=== PATIENT | male | born 1930 | race Caucasian/White ===

== ENCOUNTER 2016-11-23 12:50 | Inpatient (IN) | payer MEDICARE ==
[~2016-11-23] VITALS: Ht 177.8 cm; Wt 68.8 kg
[~2016-11-23 12:50] MED LIST: ACETAMINOPHEN325 MG PO; AMOXICILLIN500 M1 PO; AUGMENTIN 875-11 TAB PO; BACTRIM DS TABL1 TAB PO; BETAPACE 80 MG80 MG PO; BIAXIN 500 MG500 MG PO; CARAFATE1 G/10 ML PO; CARDIZEM120 MG PO; FERROUS SULFAT325 MG PO; FLOMAX0.4 MG PO; HYDROCODONE-APA1 TAB PO; NAPROSYN500 MG PO; PROCTOCORT RC; PROTONIX40 MG PO; ULTRAM50 MG PO; VITAMIN B-121000 MCG PO; VITAMIN B-1250 MCG PO
[2016-11-23 13:45] LABS: BASOPHILS 0 % (0-2); EOSINOPHILS 0 % (0-7); HEMATOCRIT 33.1 % (42.0-54.0); HEMOGLOBIN 10.8 g/dL (13.5-17.5); IMMATURE GRANULOCYTES 0.4 % (0-5); LYMPHOCYTES 6.8 % (15-50); MCH 29.7 pg (26.0-34.0); MCHC 32.6 g/dL (31.0-37.0); MCV 90.9 fL (80.0-100.0); MEAN PLATELET VOLUME 8.2 fL (7.4-10.4); MONOCYTES 7.3 % (2-11); NEUTROPHILS 85.5 % (40-80); RBC 3.64 10x6/uL (4.20-6.10); RDW 15.7 % (11.5-14.5); WBC 7.8 10x3/uL (4.8-10.8)
[2016-11-23 13:46] LABS: PLATELET COUNT 192 10x3/uL (130-400)
[2016-11-23 14:00] LABS: ALBUMIN 3.4 g/dL (3.4-5.0); ANION GAP 9.9 mmol/L (8-16); BILIRUBIN - TOTAL 0.46 mg/dL (0.2-1.3); CALCIUM 8.4 mg/dL (8.5-10.1); CARBON DIOXIDE 32.8 mmol/L (21.0-32.0); CREATININE - SERUM 1.2 mg/dL (0.6-1.3); POTASSIUM - SERUM 3.7 mmol/L (3.5-5.1); PROTEIN - SERUM 7.2 g/dL (6.4-8.2)
[2016-11-23 16:03] LABS: INR 1.38 (0.85-1.17); PROTIME 16.9 SECONDS (11.6-15.0)
[2016-11-23 16:04] LABS: APTT 39.4 SECONDS (22.8-39.4)
[2016-11-23 16:57] VITALS: BP 160/85; BMI 19.4
--- NOTE | 2016-11-23 17:00 | NUR ---
RECEIVED TO ROOM 2205 VIA STRETCHER FROM ER. A/O X3. NO C/O AT THIS TIME. NG TO RIGHT NARE PATENT WITH DARK BROWNISH DRAINAGE. IV TO LEFT FOREARM/AC AREA PATENT. SKIN IS INTACT WITHOUT REDNESS EXCEPT SOME REDNESS NOTED TO COCCYX AREA AND ALONG SPINE TO MID BACK. DENIES PAIN OR NEEDS AT TTHIS TIME.
--- NOTE | 2016-11-23 19:28 | NUR ---
REPORT CALLED TO DALILA. NO CHANGES NOTED. TRANSFERRED TO ROOM 2118 PER MD ORDERS.
--- NOTE | 2016-11-23 19:43 | NUR ---
PT ARRIVES FROM MED SURG, ROOM 2205, VIA WC ACCOMPANIED BY NURSE. TELEMETRY ON AND REVEALS PT IS IN A NSR WITH PAC'S AND PVC'S. HR 88. UPON ARRIVAL, TEMP IS 101.[address] LOPES. ROOM AIR, SATS 95%. NGT TO LEFT NARE, DRAINS MODERATE AMOUNT GREEN BILE LIKE DRAINAGE, CONNECTED TO LIWS. LEFT AC WITH D5 1/2NS C/ 10 KCL @ 125 CC/HR. PT IS ALERT AND ORIENTED. DAUGHTER INB LAW AT THE BEDSIDE. SCD'S ON AND CONNECTED. CALL LIGHT PLACED WITHIN REACH.
--- NOTE | 2016-11-23 19:51 | NUR ---
DR LOPES PAGED TO NOTIFY OF ELEVATED TEMP. AWAITING RETURN CALL.
[2016-11-23 19:53] VITALS: BP 153/88
--- NOTE | 2016-11-23 20:03 | NUR ---
RETURN CALL FROM DR LOPES, NEW ORDERS RECEIVED FOR CARDIO CONSULT, TYLENOL SUPP PRN FOR ELEVATED TEMP AND BLOOD AND URINE CULTURES. PT AND FAMILY UPDATED ON POC AND VERBALIZED UNDERSTANDING.
[2016-11-23 21:38] LABS: APPEARANCE CLEAR (CLEAR); BILIRUBIN NEGATIVE (NEGATIVE); COLOR YELLOW (YELLOW); GLUCOSE NEGATIVE (NEGATIVE); KETONE NEGATIVE (NEGATIVE); LEUKOCYTE ESTERASE NEGATIVE (NEGATIVE); NITRITE NEGATIVE (NEGATIVE); PROTEIN TRACE mg/dL (NEGATIVE); UROBILINOGEN NORMAL (NORMAL)
[2016-11-24] VITALS (7 sets, daily range): BP systolic 114–146; BP diastolic 54–84; Ht 177.8 cm; Wt 68.8 kg
--- NOTE | 2016-11-24 00:14 | NUR ---
REMAINS IN NSR ON MONITOR, HR 77. REMAINS WITH FREQ PAC'S/PVC'S. NO NEEDS VOICED. WILL CONT TO MONITOR.
--- NOTE | 2016-11-24 02:00 | NUR ---
PT RESTING WELL WITHOUT C/O OR DISTRESS NOTED.
--- NOTE | 2016-11-24 05:20 | NUR ---
PT C/O NGT IRRITATING HIS NOSE AND PLEADS TO HAVE NGT REMOVED. EXPLAINED TO PT THAT THE PHYSICIAN ORDERED IT AND IT CAN NOT BE REMOVED UNTIL HE ORDERS NGT TO BE REMOVED AND THE NEED FOR NGT TO DECOMPRESS HIS STOMACH. PT VERBALIZES UNDERSTANDING AND STATES WILL AWAIT DR LOPES OR DR MCKINNON TO COME AND SPEAK WITH HIM THIS MORNING.
[2016-11-24 05:51] LABS: BASOPHILS 0.1 % (0-2); EOSINOPHILS 0.2 % (0-7); HEMATOCRIT 31.1 % (42.0-54.0); IMMATURE GRANULOCYTES 0.3 % (0-5); LYMPHOCYTES 5.8 % (15-50); MCH 29.6 pg (26.0-34.0); MCHC 32.2 g/dL (31.0-37.0); MEAN PLATELET VOLUME 8.5 fL (7.4-10.4); MONOCYTES 9.1 % (2-11); NEUTROPHILS 84.5 % (40-80); PLATELET COUNT 193 10x3/uL (130-400); RBC 3.38 10x6/uL (4.20-6.10); RDW 15.7 % (11.5-14.5); WBC 9.5 10x3/uL (4.8-10.8)
[2016-11-24 06:09] LABS: ALBUMIN 2.9 g/dL (3.4-5.0); ANION GAP 8.9 mmol/L (8-16); BILIRUBIN - TOTAL 0.48 mg/dL (0.2-1.3); CALCIUM 7.4 mg/dL (8.5-10.1); CARBON DIOXIDE 30.8 mmol/L (21.0-32.0); CREATININE - SERUM 1.2 mg/dL (0.6-1.3); PROTEIN - SERUM 6.3 g/dL (6.4-8.2)
[2016-11-24 06:16] LABS: POTASSIUM - SERUM 2.7 mmol/L (3.5-5.1)
--- NOTE | 2016-11-24 07:07 | NUR ---
DR CASTILLO ON FLOOR, NOTIFIED OF CONSULT ORDER.
--- NOTE | 2016-11-24 07:30 | NUR ---
RECEIVED PT IN BED AAOX4 RESP UNLABORED NG TUBE PATENT TO RT NARE CONNECTED TO LOW INTERMITENT SUCTION PT DENIES ANY NEEDS AT THIS TIME
--- NOTE | 2016-11-24 16:00 | NUR ---
WENT IN PT ROOM PT ASLEEP FOUND NG TUBE LAYING IN BED BY PT INSERTED BUCK MONET NG TUBE THRU LT NARE SECURED AND VERIFIED BY ASCULATION RECONNECTED TO LOW INTERMITTENT SUCTION PT TOLERATED WELL
--- NOTE | 2016-11-24 23:15 | NUR ---
K+ RESULTS 3.6. NO FURTHER INTERVENTION REQUIRED PER ELECTROLYTE PROTOCOL.
[2016-11-25] VITALS: BP 117/62
[2016-11-25 04:00] VITALS: BP 125/75
[2016-11-25 05:41] LABS: BASOPHILS 0.1 % (0-2); EOSINOPHILS 0.5 % (0-7); HEMATOCRIT 30.1 % (42.0-54.0); HEMOGLOBIN 9.6 g/dL (13.5-17.5); IMMATURE GRANULOCYTES 0.5 % (0-5); LYMPHOCYTES 7.5 % (15-50); MCH 29.3 pg (26.0-34.0); MCHC 31.9 g/dL (31.0-37.0); MCV 91.8 fL (80.0-100.0); MEAN PLATELET VOLUME 9.1 fL (7.4-10.4); MONOCYTES 11.2 % (2-11); NEUTROPHILS 80.2 % (40-80); PLATELET COUNT 211 10x3/uL (130-400); RBC 3.28 10x6/uL (4.20-6.10); RDW 15.5 % (11.5-14.5); WBC 8.5 10x3/uL (4.8-10.8)
[2016-11-25 05:58] LABS: CALC OSMOLALITY 267 mosm/kg (275-300); CALCIUM 7.3 mg/dL (8.5-10.1); CARBON DIOXIDE 26.1 mmol/L (21.0-32.0); CHLORIDE - SERUM 100 mmol/L (98-107); GLUCOSE 109 mg/dL (74-106); POTASSIUM - SERUM 3.6 mmol/L (3.5-5.1); SODIUM 134 mmol/L (136-145); eGFR NON AFRICAN AMERICAN 75 mL/min (90-120)
[2016-11-25 06:01] LABS: UREA NITROGEN 11 mg/dL (7-18)
[2016-11-25 08:00] VITALS: BP 114/72
--- NOTE | 2016-11-25 08:35 | HP ---
PATIENT: JELLY KENDALL JR MEDICAL RECORD: [id number] ACCOUNT: [id number] LOCATION:[address] : [birth year] ADMISSION DATE: 11/23/16 HISTORY AND PHYSICAL EXAMINATION REASON FOR ADMISSION: Abdominal pain with fecal vomiting. 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 Of the last 2 days, he had increasing abdominal pain and today started vomiting brown fecal material. For that reason, he came to the Emergency Room. He denies fever. He has had no abdominal surgery in the past except for right fem-pop repair. He states that he lost about 50 pounds a year ago. Weight stabilized and has not dropped any further. He goes to [place] for his health care mainly and sees Dr. Barriga for history of PIF. He said he has not had a big workup for weight loss, but has been stable for the last year. He lives alone and fixes all meals. He states that he does have a son and daughter, all living in town. PAST MEDICAL HISTORY: A 4 cm aortic abdominal aneurysm, asymptomatic, peripheral vascular disease with previous fem-pop on the right, history of paroxysmal atrial fibrillation, history of aortic sclerosis, history of GI bleed in 2013 with 6 units of blood transfused. He was asystolic positive and antral ulcer at that time. History of osteoarthritis, history of lumbar compression fractures, [facility]. He had a [facility] at [facility] recurring a right tibial fracture and left knee injury. History of anemia due to gastrointestinal blood loss. PAST SURGICAL HISTORY: Hernia repair, right aortofemoral bypass, compound fracture of his right tib-fib post-repair. He had left knee ORIF. Vertebroplasty 3 levels in the lumbar spine. SOCIAL HISTORY: Remote smoker. He drinks alcohol maybe 4 times a year. He is , lives alone, and has family locally. CURRENT MEDICATIONS: Betapace 80 mg b.i.d., Cardizem 120 mg b.i.d., tramadol 100 mg t.i.d. p.r.n. low back pain, ferrous sulfate 325 mg a day, vitamin B12 1 cc IM monthly, Ulen 10/325 mg 1 q.4 hours p.r.n. low back pain. FAMILY HISTORY: Mother of stage IV lung cancer metastatic to the kidneys. Father of unknown type of cancer. One sister had cancer, type unknown. REVIEW OF SYSTEMS: GENERAL: He had dramatic weight loss last year, which stabilized. He denies fatigue or fever. HEENT: No recent visual change, sinus congestion, or sore throat. RESPIRATORY: No SOB or cough. CARDIAC: No exertional chest pain, claudication, edema or recent palpitations. He sees Dr. Barriga in March and echo review showed aortic sclerosis, not stenosis. ENDOCRINE: Denies polyuria, polydipsia, heat or cold intolerance. GENITOURINARY: Nocturia once nightly. He has had UTI in the past. No history of prostate cancer. History of kidney stones. GASTROINTESTINAL: Nausea and vomiting, fecal material today, constipation for the last week and abdominal pain. HISTORY AND PHYSICAL [id number] JELLY KENDALL JR MUSCULOSKELETAL: Chronic lumbago without sciatica. PSYCHIATRIC: Denies depressed mood. NEUROLOGIC: Denies memory loss. PHYSICAL EXAMINATION: VITAL SIGNS: Temperature is 98.4 Fahrenheit orally, pulse 72 and regular, respirations 16, blood pressure 160/85, sat 96% on room air. HEENT: Normocephalic. Eyes are clear with senile cataracts. He has male pattern balding. Oropharynx unremarkable. His breath is fecal. NECK: Supple. CHEST: Clear without wheeze or rales. HEART: Regular rate and rhythm with a II/ aortic sclerosis murmur. No diastolic rumble is noted. PMI is appropriate. ABDOMEN: Soft, scaphoid with absent bowel sounds, nontender at this time. RECTAL: No stool in the vault. EXTREMITIES: No CC&E. He has a scar over his right lateral ankle and left medial knee from previous surgery. Gait was not tested. INTEGUMENT: Surgical scars noted. No icterus. NEUROLOGIC: Oriented to person, place, and time. Cranial nerves are grossly intact. Gait was not tested. No localizing motor deficits were appreciated. LABORATORY DATA: White count 7800 with an H&H of 10.8 and 33.1 respectively, MCV of 90.9, platelet count 192,000, 85 neutrophils and 6.8 lymphocytes. Chemistry shows a BUN and creatinine of 21 and 1.2, and anion gap of 9.9. Glucose of 126, nonfasting. Liver functions, amylase and lipase are normal. UA is pending. Coagulation studies shows INR of 1.38. IMAGING DATA: CT of the abdomen and pelvis shows small-bowel obstruction, transition point in the mid abdomen, infrarenal aortic aneurysm measuring 4.7 cm and large from previous, exophytic cyst ruptured from the lower pole of the right kidney measuring 4.8 cm, stomach is distended, dilatation of small bowel loops, atherosclerotic calcifications seen throughout the abdominal aorta with the aneurysm as mentioned above. Right iliofemoral bypass graft is noted. Old compression deformities at L3, L4 and L5 with vertebroplasty material in place. Osteoarthritis of the hips bilaterally. ASSESSMENT: 1. Acute small-bowel obstruction, etiology unknown. 2. Significant weight loss 1 year ago, currently, stable. 3. History of paroxysmal atrial fibrillation, currently in sinus rhythm. 4. Aortic sclerosis. 5. Anemia of gastrointestinal blood loss. 6. Osteoarthritis. 7. 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 8. History of right tibia-fibula fracture, left knee arthritis post-ORIF. 9. History of antral ulcer and gastrointestinal bleed, he was transfused in 2016. 10. Chronic pain from low back issues. PLAN: The patient has got NG tube placed, on bed rest and fluid hydration. Dr. Rodriguez from surgery has seen the patient and following. Place on IV Protonix. Further workup pending clinical course. TRANSINT:[id number] Voice Confirmation ID: [id number] DOCUMENT ID: [id number] HISTORY AND PHYSICAL [id number] JELLY KENDALL JR, TIMOTHY MD at 0835 CC: [id number] DICTATION DATE: 11/23/161751 DREDGE LEVER OPERATOR: 11/23/16 1842 ADM IN [facility] [address] [place] [address]
--- NOTE | 2016-11-25 10:02 | NUR ---
TELEMETRY SR WITH PVCS NOTED. NGT TO LIS NOTED. IV PATENT. CALL LIGHT IN REACH. WILL CONT. PLAN OF CARE.
[2016-11-25 12:00] VITALS: BP 125/80
--- NOTE | 2016-11-25 14:30 | NUR ---
MINERAL OIL ENEMA GIVEN WITH 2 DUCOLAX SUP. WILL MONITOR OP.
--- NOTE | 2016-11-25 15:56 | NUR ---
SM BM NOTED.
[2016-11-25 16:00] VITALS: BP 148/80
--- NOTE | 2016-11-25 16:48 | NUR ---
ASSISTED UP TO CHAIR. NG TUBE INTACT. CALL LIGHT IN REACH.
[2016-11-25 19:00] VITALS: BP 127/61
[2016-11-26 04:00] VITALS: BP 111/67
[2016-11-26 05:57] LABS: BASOPHILS 0.1 % (0-2); EOSINOPHILS 1.3 % (0-7); HEMATOCRIT 29.2 % (42.0-54.0); HEMOGLOBIN 9.5 g/dL (13.5-17.5); IMMATURE GRANULOCYTES 0.7 % (0-5); LYMPHOCYTES 10.4 % (15-50); MCH 29.6 pg (26.0-34.0); MCHC 32.5 g/dL (31.0-37.0); MEAN PLATELET VOLUME 8.8 fL (7.4-10.4); MONOCYTES 10.1 % (2-11); NEUTROPHILS 77.4 % (40-80); PLATELET COUNT 198 10x3/uL (130-400); RBC 3.21 10x6/uL (4.20-6.10); RDW 15.5 % (11.5-14.5); WBC 6.7 10x3/uL (4.8-10.8)
[2016-11-26 06:16] LABS: CALC OSMOLALITY 270 mosm/kg (275-300); CALCIUM 7.3 mg/dL (8.5-10.1); CARBON DIOXIDE 26.8 mmol/L (21.0-32.0); CHLORIDE - SERUM 104 mmol/L (98-107); CREATININE - SERUM 0.9 mg/dL (0.6-1.3); GLUCOSE 107 mg/dL (74-106); MAGNESIUM - SERUM 1.6 mg/dL (1.8-2.4); PHOSPHOROUS 1.9 mg/dL (2.5-4.9); POTASSIUM - SERUM 3.5 mmol/L (3.5-5.1); SODIUM 136 mmol/L (136-145); UREA NITROGEN 11 mg/dL (7-18); eGFR NON AFRICAN AMERICAN 84 mL/min (90-120)
[2016-11-26 08:22] VITALS: BP 147/84
[2016-11-26 12:10] VITALS: BP 140/87
--- NOTE | 2016-11-26 13:29 | NUR ---
NGT INTACT TO SUCTION. IV PATENT. CALL LIGHT IN REACH. WILL CONT. PLAN OF CARE.
[2016-11-26 16:15] VITALS: BP 150/84
--- NOTE | 2016-11-26 19:45 | NUR ---
PT RESTING IN BED. NGT TO LIS. SEE SHIFT ASSESSMENT. CPOC.
--- NOTE | 2016-11-26 20:14 | NUR ---
RECIEVED CALL FROM DR LOPES [facility] ORDERS TO ADVANCE NGT BY 2 INCHES. NGT HAS BEEN ADVANCED BY 2 INCHES AND NEW NGT SECUREMENT DEVICE IN PLACE. PT IS ALERT. NGT TO LIS. CAF PER TELEMETRY. NONLABORED RESPIRATIONS ON ROOM AIR. PIV TO RFA WITH PROCALAMINE AT 100ML/HR AND CARDIZEM AT 5ML/HR. SEE SHIFT ASSESSMENT. CPOC.
--- NOTE | 2016-11-26 21:26 | NUR ---
ASSISTED PT UP AND TO SIT ON BSC TO TRY AND HAVE BM. CALL LIGHT IN REACH. PT WANTING TO STAY THERE FOR A FEW MINUTES, SO FAR ONLY FLATULENCE.
--- NOTE | 2016-11-26 22:00 | NUR ---
PT NOW BACK IN BED. NO BM. NGT TO LIS. CALL LIGHT IN REACH.
[2016-11-26 22:14] VITALS: BP 112/71
[2016-11-27 00:45] VITALS: BP 141/84
--- NOTE | 2016-11-27 03:29 | NUR ---
PT RESTING WITH NO DISTRESS. CPOC.
--- NOTE | 2016-11-27 04:30 | NUR ---
PT BACK UP TO BSC AND HAD A BM. CARE PROVIDED, BACK TO BED. NGT TO LIS. PROCALAMINE AT 100ML/HR AND CARDIZEM AT 5ML/HR CONTINUE TO INFUSE.
[2016-11-27 06:15] LABS: MAGNESIUM - SERUM 2.2 mg/dL (1.8-2.4); PHOSPHOROUS 2.3 mg/dL (2.5-4.9)
--- NOTE | 2016-11-27 07:30 | NUR ---
RECEIVED PT IN BED AAOX4 RESP UNLABORED DENIES ANY NEEDS OR DISCOMFORT AT THIS TIME
[2016-11-27 08:00] VITALS: BP 119/81
[2016-11-27 12:00] VITALS: BP 135/72
[2016-11-27 16:00] VITALS: BP 128/84
[2016-11-27 19:00] VITALS: BP 126/72
--- NOTE | 2016-11-27 20:19 | NUR ---
PT JUST UP TO BSC, BUT ONLY HAD FLATUS. BACK TO BED. TELEMETRY CAF/98. NONLABORED RESPIRATIONS ON ROOM AIR. IV TO RFA WITH PROCALAMINE @ 100ML/HR AND CARDIZEM @ 5ML/HR. NGT TO LIS WITH MINIMAL LIGHT GREEN OUTPUT ONLY. SEE ASSESSMENT. CPOC.
[2016-11-28] VITALS: BP 131/84
--- NOTE | 2016-11-28 03:08 | NUR ---
PT UP TO BEDSIDE RECLINER FROM 0015 TO 0100, THEN BACK TO BED. NGT TO LIS IN PLACE. IV PROCALAMINE @ 100ML/RH AND CARDIZEM AT 5ML/HR INFUSING. CURRENTLY /83.
[2016-11-28 04:00] VITALS: BP 124/66
[2016-11-28 05:41] LABS: BASOPHILS 0 % (0-2); HEMOGLOBIN 9.7 g/dL (13.5-17.5); IMMATURE GRANULOCYTES 0.9 % (0-5); MCH 29.5 pg (26.0-34.0); MCHC 33.4 g/dL (31.0-37.0); MCV 88.1 fL (80.0-100.0); MEAN PLATELET VOLUME 8.7 fL (7.4-10.4); MONOCYTES 9.2 % (2-11); NEUTROPHILS 77.9 % (40-80); PLATELET COUNT 204 10x3/uL (130-400); RBC 3.29 10x6/uL (4.20-6.10); RDW 15.3 % (11.5-14.5); WBC 5.7 10x3/uL (4.8-10.8)
[2016-11-28 05:58] LABS: ALBUMIN 2.4 g/dL (3.4-5.0); ALKALINE PHOSPHATASE 74 U/L (46-116); ALT (SGPT) 17 U/L (10-68); BILIRUBIN - TOTAL 0.51 mg/dL (0.2-1.3); CALC OSMOLALITY 258 mosm/kg (275-300); CALCIUM 7.6 mg/dL (8.5-10.1); CARBON DIOXIDE 22.9 mmol/L (21.0-32.0); CHLORIDE - SERUM 96 mmol/L (98-107); GLUCOSE 98 mg/dL (74-106); PROTEIN - SERUM 5.6 g/dL (6.4-8.2); SODIUM 127 mmol/L (136-145); UREA NITROGEN 25 mg/dL (7-18); eGFR NON AFRICAN AMERICAN 75 mL/min (90-120)
[2016-11-28 06:02] LABS: PHOSPHOROUS 2.9 mg/dL (2.5-4.9)
[2016-11-28 08:32] LABS: CKMB 1.8 U/L (0.0-3.6); CREATINE KINASE 124 UL (21-232); TROPONIN-I 0.041 ng/mL (0.000-0.060)
[2016-11-28 08:57] VITALS: BP 113/80
--- NOTE | 2016-11-28 09:43 | NUR ---
TO JUNCTION MAKER VIA BED PER JUNCTION MAKER STAFF
--- NOTE | 2016-11-28 10:45 | NUR ---
RECEIVED PT BACK TO ROOM VIA BED VSS RESP UNLABORED PPP X4 TR BAND AND BRACE INTACT TO RT WRIST WILL CONT MONITOR
[2016-11-28 12:20] VITALS: BP 101/56
[2016-11-28 15:48] VITALS: BP 117/75
[2016-11-28 19:00] VITALS: BP 103/62
--- NOTE | 2016-11-28 20:00 | NUR ---
PT RESTING IN BED. RESTLESS. FAVORING LEFT WRIST. PIV TO RFA WITH PROCALAMINE @ 50ML/HR AND CARDIZEM AT 5ML/HR. CURRENTLY /. SEE ASSESSMENT, CPOC.
--- NOTE | 2016-11-28 21:57 | NUR ---
PT C/O PAIN TO LEFT WRIST 10/30. MEDICATED WITH TORADOL 30MG IM TO RIGHT HIP. POSITIONED ARM ON PILLOW. MONITOR AND CPOC.
[2016-11-29 04:14] VITALS: BP 94/58
[2016-11-29 06:22] LABS: BASOPHILS 0 % (0-2); EOSINOPHILS 0.5 % (0-7); HEMATOCRIT 26.8 % (42.0-54.0); HEMOGLOBIN 8.9 g/dL (13.5-17.5); IMMATURE GRANULOCYTES 1.7 % (0-5); LYMPHOCYTES 9.7 % (15-50); MCH 29.3 pg (26.0-34.0); MCHC 33.2 g/dL (31.0-37.0); MCV 88.2 fL (80.0-100.0); MEAN PLATELET VOLUME 8.8 fL (7.4-10.4); MONOCYTES 13.5 % (2-11); NEUTROPHILS 74.6 % (40-80); PLATELET COUNT 217 10x3/uL (130-400); RBC 3.04 10x6/uL (4.20-6.10); RDW 15.4 % (11.5-14.5)
[2016-11-29 06:45] LABS: ANION GAP 12.8 mmol/L (8-16); C-REACTIVE PROTEIN 15.2 mg/dL (0.0-0.9); CALCIUM 7.1 mg/dL (8.5-10.1); CARBON DIOXIDE 20.2 mmol/L (21.0-32.0); CREATININE - SERUM 1.1 mg/dL (0.6-1.3)
[2016-11-29 07:58] LABS: ERYTHROCYTE SEDIMENTATION RATE 20 mm/hr (0-30)
--- NOTE | 2016-11-29 08:10 | NUR ---
PRE-OPS GIVEN. TO ROLL FORMING MACHINE OPERATOR BY BED.
[2016-11-29 08:49] VITALS: BP 103/59
--- NOTE | 2016-11-29 09:43 | NUR ---
TELEMETRYCAF. HR 84. IV PATENT. TOLERATING CLEAR LIQ. CALL LIGHT IN REACH. WILL CONT. PLAN OF CARE.
--- NOTE | 2016-11-29 09:52 | NUR ---
UP AMBULATING WITH PT ASSIST.
[2016-11-29 11:58] VITALS: BP 92/56
--- NOTE | 2016-11-29 15:19 | NUR ---
Patient Name: JELLY KENDALL Admission Status: ER Accout number: [id number] Admission Date: 11-23-2016 : 1930 Admission Diagnosis:UNSPECIFIED ABDOMINAL PAIN Attending: ZAIDA Current LOS: 6 Anticipated DC Date: 11-29-2016 Planned Disposition: Home Primary Insurance: MEDICARE A & B Discharge Planning Comments: * Is the patient Alert and Oriented? Yes 0 * How many steps to enter\exit or inside your home? 2-3 0 * PCP JEFFREY OR DR. CARPENTER 0 * Pharmacy [facility] 0 * Preadmission Environment Home Alone 0 * ADLs Independent 0 * Equipment Cane Rolling Walker Walker 0 * Other Equipment [employer] - MEDICAL EQUIPMENT PROVIDER 0 * List name and contact numbers for known caregivers / representatives who currently or will assist patient after discharge: BONITA KENDALL, SON, 0 * Community resources currently utilized None 0 * Please name any agencies selected above. NONE 0 * Additional services required to return to the preadmission environment? No 0 * Can the patient safely return to the preadmission environment? Yes 0 * Has this patient been hospitalized within the prior 30 days at any hospital? No 0 CM MET WITH PT IN ROOM TO DISCUSS DISCHARGE PLANNING AND NEEDS. PT REPORTS LIVING AT HOME INDEPENDENTLY IN HIS SON'S HOME. PT HAS TWO WALKERS AND TWO CANES. PT STILL SMOKES CIGARETTES AND USES A WALKER ON THE BACK PORCH WHEN HE GOES OUTSIDE TO SMOKE. [employer] IS PT'S PREFERRED EQUIPMENT PROVIDER. PT HAS NO OUTSIDE SERVICES ASSISTING IN THE HOME. CM DISCUSSED AVAILABILITY OF HOME HEALTH, REHAB SERVICES AND MEDICAL EQUIPMENT. PT DENIES DISCHARGE NEEDS AT THIS TIME, PLANS TO GO HOME AT DISCHARGE BUT MAY CONSIDER GOING BACK TO THE [facility] FOR REHAB IF NEEDED, PT REPORTS HIS SON WILL PICK HER UP FOR DISCHARGE HOME. IMPORTANT MESSAGE FROM MEDICARE PROVIDED AND EXPLAINED. CM DISCUSSED VA STATUS, PT DOES NOT KNOW IF HE WAS PLACED ON THE VA TRANSFER LIST AND HAS ONLY MEDICARE. PT WOULD LIKE TO [place] PL[place] THE [place] AND [place] GO TO THE [place] IF AND WHEN ACCEPTED. CM CALLED [place] EXPEDITOR [facility], , NOTIFIED OF PT'S HOSPITAL ADMISSION, NO [facility] BED AVAILABLE NOW, PT PLACED ON TRANSFER LIST FOR [facility]. PT NOTIFIED. PT PLANS TO DISCHARGE HOME, MAY CONSIDER GOING TO REHAB AT THE [facility] IF NEEDED HE HAS BEEN THERE BEFORE. CM TO FOLLOW AND ASSIST NEEDED. Tapering Machine Operator: Shaun Brito
[2016-11-29 16:09] VITALS: BP 168/69
[2016-11-29 20:00] VITALS: BP 123/73
--- NOTE | 2016-11-29 20:17 | NUR ---
RESUMED CARE OF PT, LYING IN BED WITH EYES CLOSED RESPIRAITONS EVEN AND UNLABORED ON ROOM AIR. 76 CAF ON TELEMETRY. RIGHT FOREARM INFUSING NS @ 50 AND PROCALAMINE @ 50. NO NEEDS VOICED AT THIS TIME, CALL LIGHT IN REACH. WILL CONTINUE TO MONITOR. SEE NURSE ASSESSMENT.
--- NOTE | 2016-11-30 00:15 | NUR ---
RIGHT FOREARM INFILTRATED, DC'D WITH TIP INTACT. 20 GAUGE X 1 STICK TO LEFT FOREARM. IV FLUIDS RESTARTED. WILL CONTINUE TO MONITOR. CALL LIGHT IN REACH.
[2016-11-30 01:25] VITALS: BP 114/73
--- NOTE | 2016-11-30 03:59 | NUR ---
MANAGER OCCUPATIONAL AT BEDSIDE TO OBTAIN VITALS, CALL LIGHT IN REACH. WILL CONTINUE WITH PLAN OF CARE.
[2016-11-30 04:12] VITALS: BP 115/63
[2016-11-30 05:54] LABS: BASOPHILS 0.2 % (0-2); EOSINOPHILS 2.2 % (0-7); HEMATOCRIT 26.4 % (42.0-54.0); HEMOGLOBIN 8.8 g/dL (13.5-17.5); IMMATURE GRANULOCYTES 1.6 % (0-5); LYMPHOCYTES 10.7 % (15-50); MCH 29.7 pg (26.0-34.0); MCHC 33.3 g/dL (31.0-37.0); MCV 89.2 fL (80.0-100.0); MEAN PLATELET VOLUME 9.1 fL (7.4-10.4); MONOCYTES 15.6 % (2-11); NEUTROPHILS 69.7 % (40-80); PLATELET COUNT 236 10x3/uL (130-400); RBC 2.96 10x6/uL (4.20-6.10); RDW 15.4 % (11.5-14.5); WBC 4.5 10x3/uL (4.8-10.8)
[2016-11-30 06:07] LABS: CALC OSMOLALITY 264 mosm/kg (275-300); CALCIUM 7.3 mg/dL (8.5-10.1); CHLORIDE - SERUM 100 mmol/L (98-107); GLUCOSE 96 mg/dL (74-106); POTASSIUM - SERUM 3.7 mmol/L (3.5-5.1); SODIUM 129 mmol/L (136-145); UREA NITROGEN 28 mg/dL (7-18); eGFR NON AFRICAN AMERICAN 75 mL/min (90-120)
[2016-11-30 09:26] VITALS: BP 92/54
--- NOTE | 2016-11-30 09:47 | NUR ---
TELEMETRY CAF. UP WITH PT ASSIST. WILL CONT. PLAN OF CARE.
--- NOTE | 2016-11-30 11:55 | NUR ---
Patient Name: JELLY KENDALL Encounter No: [id number] : 1930 Primary Insurance: MEDICARE A & B Anticipated DC Date: 12-01-2016 Planned Disposition: ALF FACLITY External Planned Provider: [facility], MEDICARE REHAB BED DCP follow-up note: CM RECEIVED REQUEST TO SEE PT AND SON IN ROOM. CM MET WITH PT AND SON, DISCUSSED REHAB OPTIONS. PT AND SON NOT INTERESTED IN INPATIENT REHAB, PT HAS BEEN TO [facility] IN THE PAST AND WOULD LIKE REFERRED THERE. CHOICE SIGNED, IMPORTANT MESSAGE FROM MEDICARE PROVIDED AND EXPLAINED. CM CALLED JO, CLINICAL LIAISON FOR [facility], , ASKED FOR ASSESSMENT FOR REHAB ADMISSION. CM FAXED REFERRAL TO [facility] VIA JO AT [phone]. CM WAITING ADMISSION DETERMINATION FROM [facility]. Shaun Brito, CASE MANAGEMENT
[2016-11-30 12:50] VITALS: BP 113/65
--- NOTE | 2016-11-30 14:03 | NUR ---
Nutrition follow-up: Procalamine infusing @ 50 ml/hr; NS @ 50 ml/hr Diet: Clear liquids Labs reviewed Wt: 140# RDN will monitor patients diet advancement and tolerance.
[2016-11-30 16:53] VITALS: BP 103/55
--- NOTE | 2016-11-30 19:41 | NUR ---
RESUMED CARE OF PT, UP IN THE CHAIR RESPIRATIONS EVEN AND UNLABORED ON ROOM AIR. LEFT FOREARM INFUSING NS @ 30 AND PROCALAMINE @ 50. LEFT WRIST BRACE IN PLACE. 83 CAF ON TELEMETRY. NO NEEDS AT THIS TIME, WILL CONTINUE TO MONITOR. SEE NURSE ASSESSMENT.
[2016-11-30 21:16] VITALS: BP 99/57
[2016-12-01 04:35] VITALS: BP 110/69
[2016-12-01 05:52] LABS: BASOPHILS 0.2 % (0-2); EOSINOPHILS 2.1 % (0-7); HEMATOCRIT 26.2 % (42.0-54.0); HEMOGLOBIN 8.5 g/dL (13.5-17.5); IMMATURE GRANULOCYTES 2.1 % (0-5); LYMPHOCYTES 11.8 % (15-50); MCHC 32.4 g/dL (31.0-37.0); MCV 89.4 fL (80.0-100.0); MEAN PLATELET VOLUME 8.8 fL (7.4-10.4); MONOCYTES 13.9 % (2-11); NEUTROPHILS 69.9 % (40-80); PLATELET COUNT 240 10x3/uL (130-400); RBC 2.93 10x6/uL (4.20-6.10); RDW 15.5 % (11.5-14.5); WBC 4.7 10x3/uL (4.8-10.8)
[2016-12-01 06:10] LABS: CALC OSMOLALITY 265 mosm/kg (275-300); CALCIUM 7.3 mg/dL (8.5-10.1); CARBON DIOXIDE 21.1 mmol/L (21.0-32.0); CHLORIDE - SERUM 101 mmol/L (98-107); GLUCOSE 80 mg/dL (74-106); POTASSIUM - SERUM 3.8 mmol/L (3.5-5.1); SODIUM 131 mmol/L (136-145); UREA NITROGEN 25 mg/dL (7-18); eGFR NON AFRICAN AMERICAN 75 mL/min (90-120)
[2016-12-01 08:00] VITALS: BP 135/82
--- NOTE | 2016-12-01 09:55 | NUR ---
TELEMETRY SR. LEAVING FOR CT BY W/C.
--- NOTE | 2016-12-01 09:57 | NUR ---
TELEMETRY CAF. LEAVING FOR CT BY W/C.
[2016-12-01 11:52] VITALS: BP 133/55
[2016-12-01 14:44] VITALS: BP 105/60
[2016-12-01 20:00] VITALS: BP 116/62
--- NOTE | 2016-12-01 22:55 | NUR ---
INITIAL ROINDS COMPLETED AT 1910 HRS. PT DENIED ANY DISCOMFORT. ASSESSMENT COMPLETED AT 2030 HRS. VSS. CAF PER CM HR 63. IV TO LFA WITH NS AT 75CC/HR. IV PATENT. LUNGS ESSENTIALLY CTA. HYPOACTIVE BS NOTED. BRUISES NOTED TO BILAT ARMS. L WRIST SPLINT IN USE. PM MEDS GIVEN. ANUSOL SUPP PER RECTUM PLACED PER REQUEST. PT UP TO BSC AT 2230 HRS. SMALL AMOUNT OF BLOOD NOTED. EXTERNAL HEMMORHOIDS NOTED. PT ASSISTED BACK TO BED. PT CURRETNLY RESTING WITH EYES CLOSED. RESP EVEN AND REGULAR. SR UP X2, CALL LIGHT WITHIN REACH AND BED ALARM ON.
[2016-12-02] VITALS: BP 111/58
--- NOTE | 2016-12-02 00:07 | NUR ---
PT UP TO SCS. VOISED 400CC OF YELLOW URINE. BACK TO BED WITH ASSIST. WILL CONTINUE TO MONITOR. CALL LIGHT WITHIN REACH AND BED ALARM ON.
--- NOTE | 2016-12-02 01:56 | NUR ---
BEDBATH DONE, BED LINENS CHANGED. PT TOLERATED ACTIVITY WELL. WARM MOIST WACHCLOTH PLCED BETWEEN BUTTOCKS TO EXTERNAL HEMMORHOID PER PT REQUEST. WILL CONTINUE TO MONITOR. SR UP X2, CALL LIGHT WITHIN REACH AND BED ALARM ON.
[2016-12-02 04:00] VITALS: BP 111/51
--- NOTE | 2016-12-02 05:47 | NUR ---
VSS THROUGHT NIGHT. CAF PER CM. PT UP TO BSC NUMEROUS TIMES DURING SHIFT. NEEDS MET; WILL CONTINUE TO MONITOR.
--- NOTE | 2016-12-02 07:30 | NUR ---
RECEIVED PT IN BED AAOX4 RESP UNLABORED DENIES ANY NEEDS AT THIS TIME
[2016-12-02 10:02] VITALS: BP 139/61
[2016-12-02 12:00] VITALS: BP 126/63
--- NOTE | 2016-12-02 19:36 | NUR ---
INITIAL ROUNDS COMPLETED. PT DENIES ANY DISCOMFORT. WILL CONTINUE TO MONITOR.
--- NOTE | 2016-12-02 20:34 | NUR ---
ASSESSMENT COMPLETED AT 2009 HRS. CAF PER CM HR 56. VSS. IV TO LFA WITH NS AT 75CC/HR. IV PATENT. BRUISES TO BILAT ARMS NOTED. ACTIVE BOWEL SOUNDS IN ALL 4 QUADRANTS. DENIES ANY DISCOMFORT. SR UP X2, CALL LIGHT WITHIN REACH AND BED ALARM ON.
[2016-12-02 20:39] VITALS: BP 99/63
--- NOTE | 2016-12-02 22:42 | NUR ---
ASSISTED TO BSC. PT VOIDED 150CC OF CLEAR YELLOW URINE. ASSISTED BACK TO BED. WILL CONTINUE TO MONITOR. SR UP X2, CALL LIGHT WITHIN REACH AND BED ALARM ON.
--- NOTE | 2016-12-02 23:51 | NUR ---
REPOSITIONED IN BED FOR COMOFRT. WILL CONTINUE TO MONITOR.
[2016-12-03] VITALS: BP 114/57
--- NOTE | 2016-12-03 00:11 | NUR ---
PT UP IN RECLINER PER REQUEST. CALL LIGHT WITHIN REACH.
--- NOTE | 2016-12-03 02:25 | NUR ---
PT ASSISTED BACK TO BED. DENIES ANY DISCOMFORT AT THIS TIME. WILL CONTINUE TO MONITOR.
[2016-12-03 04:00] VITALS: BP 119/58
--- NOTE | 2016-12-03 04:54 | NUR ---
PT ASSISTED TO BSC. SMALL AMOUNT OF BROWN DIARRHEA NOTED. ASSISTED BACK TO BED. WILL CONTINUE TO MONITOR.
--- NOTE | 2016-12-03 06:09 | NUR ---
VSS THROUGHOUT NIGHT. PT UP TO BSC NUMEROUS TIMES DURING SHIFT. NEEDS MET; WILL CONTINUE TO MONITOR.
[2016-12-03 06:38] LABS: BASOPHILS 0.2 % (0-2); EOSINOPHILS 1.5 % (0-7); HEMATOCRIT 27.7 % (42.0-54.0); HEMOGLOBIN 9.3 g/dL (13.5-17.5); IMMATURE GRANULOCYTES 3.2 % (0-5); LYMPHOCYTES 9.1 % (15-50); MCH 29.9 pg (26.0-34.0); MCHC 33.6 g/dL (31.0-37.0); MCV 89.1 fL (80.0-100.0); MEAN PLATELET VOLUME 8.2 fL (7.4-10.4); MONOCYTES 10.1 % (2-11); NEUTROPHILS 75.9 % (40-80); PLATELET COUNT 230 10x3/uL (130-400); RBC 3.11 10x6/uL (4.20-6.10); RDW 15.6 % (11.5-14.5)
[2016-12-03 07:08] LABS: ANION GAP 10.5 mmol/L (8-16); CALCIUM 7.4 mg/dL (8.5-10.1); CARBON DIOXIDE 22.9 mmol/L (21.0-32.0); CREATININE - SERUM 1.1 mg/dL (0.6-1.3); MAGNESIUM - SERUM 1.8 mg/dL (1.8-2.4); POTASSIUM - SERUM 3.4 mmol/L (3.5-5.1)
--- NOTE | 2016-12-03 07:21 | NUR ---
RECEIVED PT IN BED AAOX4 RESP UNLABORED DENIES ANY NEEDS OR DISCOMFORT AT THIS TIME
[2016-12-03 08:11] VITALS: BP 120/60
[2016-12-03 12:19] VITALS: BP 115/61
[2016-12-03 16:27] VITALS: BP 103/53
--- NOTE | 2016-12-03 19:34 | NUR ---
INITIAL ROUNDS COMPLETED. PT DENIES ANY DIISCOFORT. WILL CONTINUE TO MONITOR.
[2016-12-03 20:56] VITALS: BP 114/64; BP 154/58
--- NOTE | 2016-12-03 21:17 | NUR ---
VSS. CAF PER CM HR 62. SIISTED TO BSC. VOIDED LARGE AMOUNT OF URINE. ASSISTED BACK TO BED. PM MEDS GIVEN. REPOSITIONED IN BED FOR COMFORT. WILL CONTINUE TO MONITOR. SR UP X2, CALL LIGHT WITHIN REACH AND BED ALARM ON.
--- NOTE | 2016-12-03 22:32 | NUR ---
PT REPOSITIONED IN BED FOR COMFORT. WILL CONTINUE TO MONITOR.
--- NOTE | 2016-12-03 23:47 | NUR ---
ASSISTED PT TO BSC. PT HAD A SMALL, SOFT FORMED STOOL WITH SOME DIARRHEA. ASSISTED BACK TO BED. PT STATED FELT MUCH BETTER. WILL CONTINUE TO MONITOR. SR UP X2, CALL LIGHT WITHIN REACH AND BED ALARM ON.
[2016-12-04 00:20] VITALS: BP 120/66
--- NOTE | 2016-12-04 02:23 | NUR ---
PT RESTING WITH EYES CLOSED. RESP EVEN AND REGULAR. SR UP X2, CALL LIGHT WITHIN REACH AND BED ALARM ON.
--- NOTE | 2016-12-04 04:00 | NUR ---
PT ASSISTED TO BSC. VOID MODERATE AMOUNT OF URINE. BED LINENS CHANGED AT THAT TIME. ASSISTED BACK TO BED. WILL CONTINUE TO MONITOR. BED ALARM ON.
[2016-12-04 05:44] LABS: BASOPHILS 0.3 % (0-2); EOSINOPHILS 1.9 % (0-7); HEMATOCRIT 25.5 % (42.0-54.0); HEMOGLOBIN 8.6 g/dL (13.5-17.5); IMMATURE GRANULOCYTES 4.7 % (0-5); LYMPHOCYTES 10.2 % (15-50); MCH 29.7 pg (26.0-34.0); MCHC 33.7 g/dL (31.0-37.0); MCV 87.9 fL (80.0-100.0); MEAN PLATELET VOLUME 8.3 fL (7.4-10.4); MONOCYTES 13.6 % (2-11); NEUTROPHILS 69.3 % (40-80); PLATELET COUNT 207 10x3/uL (130-400); RDW 15.3 % (11.5-14.5); WBC 6.8 10x3/uL (4.8-10.8)
--- NOTE | 2016-12-04 05:59 | NUR ---
VSS THROUGHOUT NGIHT. PT DENIED ANY DISCOMFORT. PT UP TO BSC NUMEROUS TIMES DURING SHIFT. NEEDS MET; WILL CONTINUE TO MONITOR.
[2016-12-04 06:02] LABS: CALC OSMOLALITY 275 mosm/kg (275-300); CALCIUM 7.3 mg/dL (8.5-10.1); CARBON DIOXIDE 22.2 mmol/L (21.0-32.0); CHLORIDE - SERUM 108 mmol/L (98-107); GLUCOSE 94 mg/dL (74-106); POTASSIUM - SERUM 3.5 mmol/L (3.5-5.1); SODIUM 138 mmol/L (136-145); eGFR NON AFRICAN AMERICAN 75 mL/min (90-120)
[2016-12-04 06:09] LABS: UREA NITROGEN 12 mg/dL (7-18)
[2016-12-04 06:13] VITALS: BP 117/67
[2016-12-04 09:09] VITALS: BP 98/63
--- NOTE | 2016-12-04 09:23 | NUR ---
Patient Name: JELLY KENDALL Encounter No: [id number] : 1930 Primary Insurance: MEDICARE A & B Anticipated DC Date: 12-01-2016 Planned Disposition: NURSING HOME FACILITY External Planned Provider: [facility], MEDICARE REHAB BED DCP follow-up note: CM RECEIVED CALL FROM JO CLINICAL LIAISON FOR [facility], [facility] TO ACCEPT PT FOR REHAB AT DISCHARGE. CM SPOKE TO PT'S SON WHO IS IN AGREEMENT WITH DISCHARGE PLAN TO REHAB AT [facility] AND WILL ASSIST WITH FILLING OUT PAPERWORK FOR REHAB ADMISSION IF POSSIBLE. FOR DISCHARGE TO [facility], FAX DISCHARGE INFORMATION TO [facility] AT [phone]; NURSE REPORT TO BE CALLED TO [facility] AT [phone]. [facility] TO ARRANGE VAN TRANSPORATION. Shaun Brito, CASE MANAGEMENT
--- NOTE | 2016-12-04 10:09 | NUR ---
TELEMETRY CAF. IV SL. CALL LIGHT IN REACH. WILL CONT. PLAN OF CARE.
--- NOTE | 2016-12-04 10:26 | NUR ---
UP TO AMBULATE WITH PT ASSIST.
[2016-12-04 12:00] VITALS: BP 108/60
--- NOTE | 2016-12-04 14:58 | CN ---
PATIENT NAME:JELLY KENDALL JR MEDICAL RECORD: [id number] : [birth year] LOCATION:[facility] [address] ADMIT DATE: 11/23/16 ACCOUNT: [id number] CONSULTING PHYSICIAN: COLTON CERVANTES MD REFERRING PHYSICIAN: RUBY LOPES MD DATE OF CONSULTATION: 11/28/2016 Cardiology Consultation HISTORY OF PRESENT ILLNESS: An 86-year-old old gentleman with a history of paroxysmal atrial fibrillation, followed by Dr. Barriga, admitted with a bowel obstruction. He has a history of peripheral vascular disease with a fem-pop repair, known for aortic aneurysm, was in atrial fibrillation initially on admission; however, this responded nicely to Cardizem drip and he currently remain in sinus. Not a candidate secondary to previous history of GI bleed. We are asked to see him concerning his cardiovascular status. PAST MEDICAL HISTORY: Include: 1. Peripheral vascular disease. 2. Hypertension. 3. Paroxysmal atrial fibrillation. 4. Osteoarthritis, status post vertebroplasty. MEDICATIONS: Include Betapace 80 b.i.d., Cardizem 120 b.i.d., tramadol 100 t.i.d. p.r.n., Serafina 10/325 q.4 p.r.n. ALLERGIES: None known. SOCIAL HISTORY: Lives by himself, but has good family support, does try to stay active. REVIEW OF SYSTEMS: The patient reports easy bruising but reports no swollen glands. The patient reports no fever, no night sweats, no significant weight gain, no significant weight loss. No significant exercise tolerance. The patient reports no dry eyes, no irritation, no vision change. Patient reports no difficulty hearing and no ear pain. Patient reports no frequent nose bleeds or nose and sinus problems. Patient reports on arm pain on exertion. No shortness of breath while lying down. No history of heart murmur. Patient reports no cough, no wheezing or coughing up blood. Patient reports no abdominal pain, no vomiting. Normal appetite. No diarrhea and not vomiting blood. No nausea and no constipation. Patient reports no incontinence. No difficulty urinating. No hematuria. No increased frequency. Patient reports no muscle aches. No weakness, no arthralgias, no back pain. No swelling of the extremities. Patient reports no abnormal mole, no jaundice, no rashes. Reports no loss of consciousness. No weakness and no numbness. No seizures, dizziness, or headaches. The patient reports no depression, no sleep disturbance, feeling safe in a relationship and no alcohol abuse. Patient reports on fatigue. Reports no runny nose or sinus pressure. No itching, no hives, and no frequent sneezing. PHYSICAL EXAMINATION: GENERAL: Pleasant gentleman, NG tube in place, appears comfortable however. VITAL SIGNS: Blood pressure 124/66, pulse 50 and regular. HEENT: Normocephalic, atraumatic. NECK: No bruits are noted. CONSULT REPORT [id number] JELLY KENDALL JR HEART: Currently is regular, II-III/ systolic ejection murmur. LUNGS: Good air excursion. ABDOMEN: Shows bowel sounds present, nontender. Pulses are decreased 1+. There is no edema. NEUROLOGIC: Grossly intact. IMPRESSION: Appears stable from a cardiovascular standpoint, on Cardizem drip. We will restart oral medications after NG tube is out. TRANSINT:[id number] Voice Confirmation ID: [id number] DOCUMENT ID: [id number] COLTON CERVANTES MD at 1458 CC: [id number] DICTATION DATE: 11/28/16 0847 TECHNOLOGY DIRECTOR: 11/28/16 0945 ADM IN [id number] [place] [address]
--- NOTE | 2016-12-04 15:17 | NUR ---
UP AMBULATING WITH PT ASSIST.
[2016-12-04 16:00] VITALS: BP 105/56
[2016-12-04 19:30] VITALS: BP 136/67
--- NOTE | 2016-12-04 22:11 | NUR ---
PT ON BSC. ASSISTED BACK TO BED AFTER PERICARE AND NEW DEPENDS COMPLETED. HS MEDS GIVEN. ASSISTED TO REPOSITION WITH PILLOWS FOR OPTIMAL COMFORT. CPOC.
[2016-12-05 01:36] VITALS: BP 129/61
--- NOTE | 2016-12-05 02:54 | NUR ---
PT HAS BEEN UP/DOWN SEVERAL TIMES TO USE BSC. C/O NOT BEING ABLE TO SLEEP, YET HE SEEMS TO BE TRYING TO STAY AWAKE. ENCOURAGE PT TO TRY AND REST. CALL LIGHT IN REACH CPOC.
[2016-12-05 05:29] VITALS: BP 147/72
[2016-12-05] MEDS ORDERED: RESTORIL7.5 MG PO (07:32)
[2016-12-05] MEDS ORDERED: K-TAB10 MEQ PO (07:32)
[2016-12-05] MEDS ORDERED: PROTONIX40 MG PO (07:32)
[2016-12-05] MEDS ORDERED: ANUSOL-HC25 MG RC (07:33)
[2016-12-05 08:21] VITALS: BP 134/65
--- NOTE | 2016-12-05 09:32 | NUR ---
Patient Name: JELLY KENDALL Encounter No: [id number] : 1930 Primary Insurance: MEDICARE A & B Anticipated DC Date: 12-05-2016 Planned Disposition: [facility] FACILITY External Planned Provider: [facility], MEDICARE REHAB BED DCP follow-up note: CM RECEIVED DISCHARGE ORDER, CALLED JO CLINICAL LIAISON FOR THE [facility], NOTIFIED OF DISCHARGE TODAY; THE [facility] TO ACCEPT PT FOR REHAB AND WILL BAR WAITER/WAITRESS AT 1100 AM. CM SPOKE TO PT AND PT'S SON IN ROOM, BOTH IN AGREEMENT WITH DISCHARGE PLAN TO REHAB AT THE [facility] TODAY. IMPORTANT MESSAGE FROM MEDICARE PROVIDED AND EXPLAINED. CM FAXED DISCHARGE INFORMATION TO THE [facility] AT [phone]. CM NOTIFIED IN EXPEDITOR SWETHA VIA PHONE OF PT'S DISCHARGE TO REHAB TODAY. NURSE REPORT TO BE CALLED TO THE [facility] AT [phone]. [facility] VAN TO BAR WAITER/WAITRESS PT AT 1100AM TODAY. Shaun Brito, CASE MANAGEMENT
--- NOTE | 2016-12-05 09:57 | NUR ---
IV AND TELEMETRY DCD. REPORT CALLED TO THE [facility]. WILL CONT. PLAN OF CARE.
--- NOTE | 2016-12-05 11:58 | NUR ---
ESCORTED TO [facility] BY W/C.
== END 2016-12-05 11:58 | DRG 389 ==
LOC: D.ER 12:50 → D.M2 15:46 → D.MS 15:46 → D.M2 19:31
PROVIDERS: Family Medicine; ADMIT Family Medicine
PROC: 0D9670Z Drainage of Stomach with Drainage Device, Via Natural or Artificial Opening (ICD-10-PCS; principal; 2016-11-23)
DX: K56.60 Unspecified intestinal obstruction (principal); E87.1 Hypo-osmolality and hyponatremia; I48.2 Chronic atrial fibrillation; I71.4 Abdominal aortic aneurysm, without rupture; D64.9 Anemia, unspecified; M19.90 Unspecified osteoarthritis, unspecified site; M81.0 Age-related osteoporosis without current pathological fracture; I10 Essential (primary) hypertension; I48.0 Paroxysmal atrial fibrillation; M25.832 Other specified joint disorders, left wrist; E87.6 Hypokalemia

== ENCOUNTER 2016-12-11 07:14 | Inpatient (IN) | payer MEDICARE ==
[~2016-12-11] VITALS: Ht 177.8 cm; Wt 54.9 kg
[~2016-12-11 07:14] MED LIST changes: +ANUSOL-HC25 MG RC; +K-TAB10 MEQ PO; +RESTORIL7.5 MG PO
[2016-12-11 08:15] LABS: ANION GAP 14.3 mmol/L (8-16); BILIRUBIN - TOTAL 0.58 mg/dL (0.2-1.3); CALCIUM 7.3 mg/dL (8.5-10.1); CARBON DIOXIDE 24.5 mmol/L (21.0-32.0); CREATININE - SERUM 2.2 mg/dL (0.6-1.3); POTASSIUM - SERUM 4.8 mmol/L (3.5-5.1); PROTEIN - SERUM 5.5 g/dL (6.4-8.2)
[2016-12-11 08:29] LABS: BASOPHILS 0.1 % (0-2); EOSINOPHILS 0 % (0-7); HEMATOCRIT 24.4 % (42.0-54.0); IMMATURE GRANULOCYTES 0.5 % (0-5); LYMPHOCYTES 2.2 % (15-50); MCH 29.2 pg (26.0-34.0); MCHC 32.8 g/dL (31.0-37.0); MCV 89.1 fL (80.0-100.0); MEAN PLATELET VOLUME 9.5 fL (7.4-10.4); MONOCYTES 4.9 % (2-11); NEUTROPHILS 92.3 % (40-80); RBC 2.74 10x6/uL (4.20-6.10); RDW 16.7 % (11.5-14.5); WBC 14.6 10x3/uL (4.8-10.8)
[2016-12-11 08:48] LABS: APPEARANCE CLOUDY (CLEAR); COLOR YELLOW (YELLOW); GLUCOSE NEGATIVE (NEGATIVE); KETONE NEGATIVE (NEGATIVE); LEUKOCYTE ESTERASE 2+ (NEGATIVE); NITRITE NEGATIVE (NEGATIVE); PROTEIN NEGATIVE (NEGATIVE); SPECIFIC GRAVITY 1.015 (1.005-1.020)
[2016-12-11 08:50] LABS: BILIRUBIN NEGATIVE (NEGATIVE); UROBILINOGEN NORMAL (NORMAL)
[2016-12-11 08:51] LABS: AMORPHOUS SEDIMENT >1+ /lpf (NONE SEEN); BACTERIA MANY /hpf (NONE SEEN); EPITHELIAL CELLS 0-5 /hpf (0-5); GRANULAR CAST 0-5 /lpf (NONE SEEN); MUCUS <1+ /lpf (NONE SEEN); PLATELET COUNT 73 10x3/uL (130-400); RED CELLS - URINE 0-5 /hpf (0-5); WHITE CELLS - URINE 25-50 /hpf (0-5)
[2016-12-11 09:13] LABS: PLATELET ESTIMATE DECREASED
[2016-12-11 09:14] LABS: CKMB 2.7 U/L (0.0-3.6); CREATINE KINASE 127 UL (21-232); PRO BNP 149308 pg/mL (0-450)
[2016-12-11 09:17] LABS: TROPONIN-I 6.679 ng/mL (0.000-0.060)
[2016-12-11 12:30] LABS: CREATINE KINASE 176 UL (21-232)
[2016-12-11 12:31] LABS: TROPONIN-I 8.603 ng/mL (0.000-0.060)
--- NOTE | 2016-12-11 13:40 | NUR ---
RECEIVED PT TO ROOM 2132 VIA STRETCHER PT LETHARGIC DYPSNEA NOTED O2 ON 3LPM NC SKIN W/D PALE TELEMETRY APPLIED UCAF RATE 101 F/C NOTED WITH SCANT AMOUNT OF CLEAR YELLOW URINE WILL CONTINUE TO MONITOR
--- NOTE | 2016-12-11 13:42 | NUR ---
TRANSFER FROM ER BY STRETCHER. CALL LIGHT IN REACH. WILL CONT. PLAN OF CARE.
[2016-12-11 15:57] VITALS: BP 113/65; BMI 17.3
--- NOTE | 2016-12-11 17:07 | NUR ---
Patient Name: JELLY KENDALL Admission Status: ER Accout number: [id number] Admission Date: 12-11-2016 : 1930 Admission Diagnosis: Attending: ZAIDA Current LOS: 1 Anticipated DC Date: Planned Disposition: [facility] Primary Insurance: MEDICARE A & B PLANNED EXTERNAL PROVIDER: [facility] Discharge Planning Comments: * Is the patient Alert and Oriented? Yes 0 * How many steps to enter\exit or inside your home? NONE 0 * PCP [facility] 0 * Pharmacy [facility] 0 * Preadmission Environment [facility] 0 * Facility Name [facility] 0 * ADLs Partial Dependent 0 * Partial ADLs (Assistance needed) Ambulation Bathing Medication Management Toileting 0 * Equipment Other 0 * Other Equipment ALL EQUIPMENT PROVIDED BY LONG TERM FACILITY 0 * List name and contact numbers for known caregivers / representatives who currently or will assist patient after discharge: BONITA KENDALL, SON, 0 * Community resources currently utilized None 0 * Please name any agencies selected above. NONE 0 * Additional services required to return to the preadmission environment? No 0 * Can the patient safely return to the preadmission environment? Yes 0 * Has this patient been hospitalized within the prior 30 days at any hospital? Yes 0 CM MET WITH PT IN ROOM TO DISCUSS DISCHARGE PLANNING AND NEEDS, PT REPORTS HE WAS AT THE [facility] FOR REHAB AND WILL BE RETURNING AT DISCHARGE. PT IS PLEASED WITH THE CARE AT THE [facility]. CM SPOKE TO PT'S SON IN [facility] CM LEFT ROOM, WHO CONFIRMED PLAN FOR DISCHARGE. CM SPOKE TO JO, CLINICAL LIAISON FOR THE [facility] AT [phone], THE [facility] WILL ACCEPT PT BACK AT DISCHARGE FOR CONTINUED REHAB SERVICES. CM FAXED HOSPITAL UPDATE TO THE [facility] VIA JO AT [phone]. FOR DISCHARGE TO THE [facility], FAX DISCHARGE INFORMATION TO THE [facility] AT [phone]; NURSE REPORT TO BE CALLED TO THE [facility] AT [phone]. THE [facility] TO ARRANGE VAN TRANSPORATION. Diesel Engine Assembler: Shaun Brito
[2016-12-11 19:00] VITALS: BP 96/55
[2016-12-11 19:29] LABS: CREATINE KINASE 204 UL (21-232)
--- NOTE | 2016-12-11 19:42 | NUR ---
PT RESTING IN BED. LETHARGIC, RESPONDED TO PHYSICAL STIMULI. DID NOT SPEAK ONLY GRUNTED IF IN PAIN. PT HAS A FOLLEY DRAINAGE BAG HANGING ON LEFT SIDE OF BED WITH CONCENTRATED URINE. RESPIRATIONS EVEN AND UNLABORED, SHALLOW. BED LOW AND CALL LIGHT WITHIN REACH. TURNED OFF OVER HEAD LIGHT AND TURNED ON SINK LIGHT, LEFT DOOR OPEN. WILL CHECK ON PT FREQUENTLY. NO S/S OF DISTRESS. WILL CPOC
[2016-12-11 19:43] LABS: TROPONIN-I 9.001 ng/mL (0.000-0.060)
[2016-12-12 00:22] LABS: CKMB 5.6 U/L (0.0-3.6); CREATINE KINASE 228 UL (21-232)
[2016-12-12 00:24] LABS: TROPONIN-I 9.748 ng/mL (0.000-0.060)
[2016-12-12 04:00] VITALS: BP 89/49
--- NOTE | 2016-12-12 04:32 | NUR ---
PT ASLEEP. RESPIRATIONS EVEN AND UNLABORED. SHALLOW. FAMILY AT BED SIDE. NO S/SOF DISTRESS. BED LOW AND CALL LIGHT WITHIN REACH. WILL CPOC
--- NOTE | 2016-12-12 07:00 | NUR ---
RECEIVED REPORT. ASSUMED CARE OF PATIENT. RESTING WITH EYES CLOSED. PATIENT IS LETHARGIC. NO FAMILY AT BEDSIDE. NS AT KVO. F/C PATENT. CONTROLLED AFIB ON TELE. NO DISTRESS.
[2016-12-12 07:06] LABS: BASOPHILS 0.1 % (0-2); EOSINOPHILS 0 % (0-7); HEMATOCRIT 23.4 % (42.0-54.0); HEMOGLOBIN 7.9 g/dL (13.5-17.5); LYMPHOCYTES 3.8 % (15-50); MCH 29.5 pg (26.0-34.0); MCHC 33.8 g/dL (31.0-37.0); MCV 87.3 fL (80.0-100.0); MEAN PLATELET VOLUME 11.2 fL (7.4-10.4); MONOCYTES 5.8 % (2-11); NEUTROPHILS 89.3 % (40-80); RBC 2.68 10x6/uL (4.20-6.10); RDW 16.9 % (11.5-14.5); WBC 16.1 10x3/uL (4.8-10.8)
--- NOTE | 2016-12-12 07:15 | NUR ---
RESTING QUIETLY RESP UNLABORED NAD NOTED
[2016-12-12 07:18] LABS: PLATELET COUNT 34 10x3/uL (130-400)
[2016-12-12 07:27] LABS: ALBUMIN 1.7 g/dL (3.4-5.0); ANION GAP 18.8 mmol/L (8-16); BILIRUBIN - TOTAL 0.63 mg/dL (0.2-1.3); CARBON DIOXIDE 19.4 mmol/L (21.0-32.0); CREATININE - SERUM 2.9 mg/dL (0.6-1.3); POTASSIUM - SERUM 5.2 mmol/L (3.5-5.1)
[2016-12-12 07:29] LABS: CALCIUM 6.9 mg/dL (8.5-10.1)
[2016-12-12 08:18] VITALS: BP 93/45
--- NOTE | 2016-12-12 08:18 | NUR ---
EYES CLOSED RESP UNLABORED RESPONSIVE TO PAINFUL STIMULI SKIN W/D COLOR PALE TELEMETRY CAF RATE 91
--- NOTE | 2016-12-12 08:45 | NUR ---
PLACED CALL TO PATIENTS SON TO OBTAIN CONSENT FOR BLOOD TRANSFUSION. NO ANSWER AT THIS TIME.
--- NOTE | 2016-12-12 09:09 | NUR ---
PATIENTS SON AT BEDSIDE. BLOOD CONSENT SIGNED AT 0900. PATIENT REMAINS LETHARGIC. NO ACUTE DISTRESS.
--- NOTE | 2016-12-12 10:50 | NUR ---
1ST UNIT PRBC'S INFUSING AT THIS TIME. TOLERATING INFUSION WELL. PATIENT REMAINS LETHARGIC. FAMILY AT BEDSIDE.
[2016-12-12 12:23] VITALS: BP 95/49
--- NOTE | 2016-12-12 13:43 | NUR ---
PATIENT COMPLETED ONE UNIT PRBC'S AT THIS TIME. BP 97/58. TOLERATED TRANSFUSION WELL. CALL LIGHT WITHIN REACH. PATIENTS SON AT BEDSIDE. NO DISTRESS.
[2016-12-12 14:03] VITALS: Ht 177.8 cm; Wt 54.9 kg
--- NOTE | 2016-12-12 15:47 | EC ---
PATIENT:JELLY KENDALL JR DATE OF SERVICE: 12/11/16 SEX: M MEDICAL RECORD: [id number] DATE OF : [birth year] LOCATION:D.M2 D.213 AGE OF PATIENT: 86 ADMISSION DATE: 12/11/16 REFERRING PHYSICIAN: INTERPRETING PHYSICIAN: ISRA BALL MD ECHOCARDIOGRAM REPORT ECHO CHARGES 4 ECHO COMPLETE CLINICAL DIAGNOSIS: ELEVATED TROPONIN ECHOCARDIOGRAPHIC MEASUREMENTS (adult normal given) AC root (d.<3.7cm) 3.4 cm LV Septum d (<1.2 cm> 1.1 cm Valve Excursion 0.8 cm LV Septum (systole) 1.7 cm Left Atria (s.<4.0cm> 4.5 cm LVPW d(<1.2cm) 1.4 cm RV (d.<2.3cm) 2.2 cm LVPW (sytole) 2.0 cm LV diastole(<5.6CM) 6.1 cm MV E-F(>70mm/sec) cm LV systole 4.0 cm LVOT Diameter 1.9 cm MV exc.(>10mm) cm Est.ejection fraction (50-75%) % Pericardial Effusion N DOPPLER: LVIT cm/sec A 90.0 cm/sec E 111 cm/sec LA cm/sec RVSP 54.0 mmHg LVOT 94.0 cm/sec AOP1/2T 523.0m/s Asc. Ao 348 cm/sec RVOT cm/sec RA cm/sec PA cm/sec AV Gradient Peak 48.3 mmHg AV Mean 27.0 mmHg AV Area 0.6 cm MV Gradient Peak 7.5 mmHg MV Mean 2.9 mmHg MV Area cm COMMENTS: Television Journalist: Brooke DOVEROE Scalloper: 4 Dr. Ball TAPE# PACS DATE OF SERVICE: 12/11/2016 PROCEDURE: Echocardiogram. FINDINGS: 1. Left ventricle: Left ventricle has concentric left ventricular hypertrophy. It was very difficult to gain all aspects of the left ventricle because of the patient's inability to position secondary to pain in the lower pubic area. The overall ejection fraction appears to be in the 40% to 45% range. 2. The mitral valve is not well visualized, but there does appear to be ECHOCARDIOGRAM REPORT [id number] JELLY KENDALL JR considerable mitral annular calcification and there appears to be hvvqhqvp-da-jlliat mitral regurgitation. 3. The left atrium is grossly dilated; however, definitive measurements were difficult to take. 4. Aortic valve, again, was not well visualized. There appears to be thickening and an elevated gradient across the aortic valve, difficult to time, but the peak gradient appears to be in the 45-50 mm range with velocities of 3.3 meters per second. 5. The tricuspid valve has moderate tricuspid regurgitation. The RVSP is 40-50 mmHg. CONCLUSION: This is a very difficult study, the patient lying on his back, primarily. There appears to be some mild decrease in the overall LV systolic function. The anterior inferior views are actually looked very good. The lateral posterior views are difficult at best, and may indicate some hypokinesis in that area with hyperdynamic areas in the anterior inferior range. There is mitral valve regurgitation at least in the npvvvcnk-lu-myybha range and there is aortic stenosis seen that is in the voykeyfs-ri-cdqviw range. TRANSINT:[id number] Voice Confirmation ID: [id number] DOCUMENT ID: [id number] ISRA BALL MD at 1547 CC: [id number] DICTATION DATE: 12/11/16 1740 REFRIGERATOR MOVER: 12/11/16 1818 ADM IN [facility] [address] [id number]
[2016-12-12 17:06] VITALS: BP 115/65
--- NOTE | 2016-12-12 19:00 | NUR ---
REPORT GIVEN TO ONCOMING NURSE. NO DISTRESS.
--- NOTE | 2016-12-12 22:25 | NUR ---
PT ASLEEP, LETHARGIC. FAMILY AT BED SIDE. NS GOING INFUSING TO LEFT FOREARM IV AT 10ML/HR. ZOSYN ALSO INFUSING. PT RESPIRATIONS ARE EVEN AND LABORED. PT BREATHING WITH MOUTH OPEN. O2 AT 4L NC. PT ON RIGHT SIDE WITH ASSIST OF A PILLOW. NO S/S OF DISTRESS. WILL CPOC
[2016-12-13] VITALS: BP 86/40
[2016-12-13 04:00] VITALS: BP 94/59
--- NOTE | 2016-12-13 06:20 | NUR ---
PT ASLEEP. RESPIRATIONS EVEN AND LABORED, 24 RR. SON HAS BEEN AT BED SIDE THROUGH THE NIGHT. HE IS NOW LEAVING AND GOING HOME FOR 30 MIN. PT BED IS LOW. CALL LIGHTS WITHIN REACH. TURNED PT TO LEFT SIDE AND REPOSITIONED. PT STILL LETHARGIC. NO S/S OF DISTRESS. WILL CPOC
[2016-12-13 06:24] LABS: BASOPHILS 0.1 % (0-2); EOSINOPHILS 0 % (0-7); HEMATOCRIT 26.1 % (42.0-54.0); HEMOGLOBIN 8.7 g/dL (13.5-17.5); IMMATURE GRANULOCYTES 3.1 % (0-5); LYMPHOCYTES 3.9 % (15-50); MCH 28.3 pg (26.0-34.0); MCHC 33.3 g/dL (31.0-37.0); MONOCYTES 7.2 % (2-11); NEUTROPHILS 85.7 % (40-80); RBC 3.07 10x6/uL (4.20-6.10); RDW 18.8 % (11.5-14.5); WBC 12.7 10x3/uL (4.8-10.8)
[2016-12-13 06:28] LABS: PLATELET COUNT 22 10x3/uL (130-400)
[2016-12-13 06:46] LABS: ALBUMIN 1.5 g/dL (3.4-5.0); BILIRUBIN - DIRECT 0.52 mg/dL (0.00-0.30); BILIRUBIN - INDIRECT 0.37 mg/dL (0.00-1.00); BILIRUBIN - TOTAL 0.89 mg/dL (0.2-1.3); CARBON DIOXIDE 21.2 mmol/L (21.0-32.0); CREATININE - SERUM 3.4 mg/dL (0.6-1.3); PHOSPHOROUS 6.3 mg/dL (2.5-4.9); POTASSIUM - SERUM 5.2 mmol/L (3.5-5.1); PROTEIN - SERUM 4.7 g/dL (6.4-8.2)
[2016-12-13 06:47] LABS: CALCIUM 6.9 mg/dL (8.5-10.1)
--- NOTE | 2016-12-13 08:35 | HP ---
PATIENT: JELLY EKNDALL JR MEDICAL RECORD: [id number] ACCOUNT: [id number] LOCATION:[address] : [birth year] ADMISSION DATE: 12/11/16 HISTORY AND PHYSICAL EXAMINATION Admission History and Physical DATE OF ADMISSION: 12/11/2016 REASON FOR ADMISSION: Fever and lethargy. HISTORY OF PRESENT ILLNESS: This is an 86-year-old white male, who was recently discharged from [facility], recently discharged on after he was in for partial small-bowel obstruction and fecal vomitus. He was discharged to the [facility] for rehab prior to that admission on 11/23/2016. The patient was living alone, fixing his own meals and was independent. He was brought to the Emergency Room from the [facility] today for fever up to 101.9, when he got to the ER. In talking with the son this evening, the patient was "fine" 2 days ago and was totally coherent when the son visited him at the [facility] on Sunday, yesterday, he had 180-degree turnaround and today, that condition persisted. In the Emergency Room, his white count was 14,000. His hemoglobin was 8 and hematocrit 24 down a little from around 8.8 hemoglobin on prior admission. His proBNP was very high at 149,308. His troponin was elevated at 8.6. His urinalysis looked infected with 2+ leukocyte esterase, 25 to 50 white blood cells and many bacteria and 0-5 epithelial cells. His basic metabolic panel showed a BUN and creatinine of 45 and 2.2 (baseline creatinine last visit was 1.0). His AST was elevated at 235, ALT elevated at 84. Stool was heme negative. Chest x-ray showed mild prominence bilaterally. KUB was consistent with an ileus. CT of the abdomen and pelvis showed large bilateral pleural effusions and ileus. Most likely, he is admitted for further evaluation. He most likely has urosepsis, but also may have had a cardiac event in the last 24 to 48 hours. PAST MEDICAL AND SURGICAL HISTORY: Again, hospitalized from November 23 to December 05 with small-bowel obstruction. He has a history of a 4-cm aortic abdominal aneurysm, history of peripheral vascular disease with previous fem-pop on the right. He has a history of paroxysmal atrial fibrillation, followed by Dr. Barriga. He has a history of aortic sclerosis, history of GI bleeding in 2013 requiring 6 units of blood. He has osteoarthritis, lumbar compression fractures. He has had anemia, most likely due to gastrointestinal blood losses. He had ORIF of right tib-fib repair. He has had vertebroplasty at 3 levels of the lumbar spine. MEDICATIONS PRIOR TO ADMISSION: Iron sulfate once a day, Cardizem 120 mg twice a day, sotalol 80 mg twice a day, Tylenol as needed, [place] 10/325 as needed, temazepam 7.5 mg q.h.s. as needed, tramadol 50 mg as needed for pain, potassium was 10 mEq twice a day for 7 days and that was to be stopped soon, Protonix 40 mg p.o. a day, B12 p.o. once a day, Anusol-HC suppositories p.r.n. hemorrhoids. SOCIAL HISTORY: , lives alone. Son lives locally. HABITS: Former smoker, rare alcohol, no drugs. FAMILY HISTORY: Mother due to stage IV lung cancer. Father of unknown type of cancer as did a sister. HISTORY AND PHYSICAL [id number] JELLY KENDALL JR REVIEW OF SYSTEMS: Really unobtainable in this patient who is not talking this evening. PHYSICAL EXAMINATION: VITAL SIGNS: In the ER, his temperature was 101.9, blood pressure was 104/60. Currently, his temperature is 98.1 with pulse of 101, respirations 20, blood pressure 113/65, O2 sat 98% with O2 in place. GENERAL: He is confused and is not answering any questions. HEENT: Otherwise unremarkable. NECK: Supple. No bruit. HEART: Irregularly, irregular with controlled rate. LUNGS: With coarse upper airway sounds. ABDOMEN: Soft, nontender, scaphoid. EXTREMITIES: With no edema. LABORATORY DATA: CBC with a white count of 14,600, hemoglobin 8, hematocrit 24, platelets 73,000, with 92% polys. Basic metabolic panel is okay except BUN 45, creatinine 2.2. AST is 235, ALT 84. Other liver enzymes are normal. Hemoccult is negative. Lactic acid was 2.5. In the Emergency Room, has gone up to 3.5. ProBNP 149,308. First set of cardiac enzymes showed troponin of 8.6 and the second set, it was up to 9.00. IMAGING: Chest x-ray showed mild prominence of interstitial lung markings, may represent interstitial edema or pneumonitis. CT of the abdomen and pelvis showed large bilateral pleural effusions, ileus and diffuse body wall edema. KUB was consistent with an ileus. Blood and urine cultures are done and are pending. ASSESSMENT: 1. Urosepsis. 2. Congestive heart failure with possible acute myocardial infarction or subacute myocardial infarction. 3. Encephalopathy. 4. Vrnyh-qq-dkhnuxu anemia. PLAN: I spoke with the patient's son who plans to come up and spend the night here. He does have DNR status and we will continue that. He has been started on IV antibiotics. Blood cultures and urine cultures are done. He is not able to swallow or follow commands, so we will hold on his oral medications. We will have IV Dilaudid as needed for pain, IV lorazepam if needed for anxiety or restlessness. We will start Pepcid IV. We will give him 1 unit of packed red blood cells. His Lasix ordered 40 mg q.12. Echocardiogram has been done. Cardiology consult has been done. Repeat labs in a.m. Discussed the case with the patient's son who is well aware of his severity of illness. TRANSINT:[id number] Voice Confirmation ID: [id number] DOCUMENT ID: [id number] HISTORY AND PHYSICAL [id number] JELLY KENDALL JR, WILLIAM MD at 0835 CC: [id number] DICTATION DATE: 12/11/162243 ORNAMENTAL METAL ERECTOR: 12/12/16 0004 ADM IN [id number] [place] [address]
[2016-12-13 09:00] VITALS: BP 82/41
--- NOTE | 2016-12-13 09:00 | NUR ---
NONRESPONSIVE. SON AT BEDSIDE. LASIX HELD FOR BP-77/44. UNABLE TO ADMINISTER PAIN MEDICATIONS. DENIES ANY NEEDS. ASSIST REPOSITIONING IN BED. BED LOCKED AND LOW. CALL LIGHT IN REACH. TWO SIDERAILS UP.
[2016-12-13 16:00] VITALS: BP 104/48
--- NOTE | 2016-12-13 18:47 | NUR ---
SLEEPING. UNRESPONSIVE. FAMILY AT BEDSIDE. DENIES ANY NEEDS. NO CHANGE. CONTINUE PLAN OF CARE. BED LOCKED AND LOW. CALL LIGHT IN REACH. TWO SIDERAILS UP.
[2016-12-13 19:00] VITALS: BP 65/30
--- NOTE | 2016-12-13 20:34 | NUR ---
HS MEDS GIVEN ORDERED VIA IV TO LEFT ARM. PT RESTING COMFORTABLY ON RIGHT SIDE, RESPERATIONS EVEN, NO S/S DISTRESS NOTED.
--- NOTE | 2016-12-14 01:32 | NUR ---
CALL LIGHT IN REACH, WILL CONTINUE WITH PLAN OF CARE.
--- NOTE | 2016-12-14 02:24 | NUR ---
DILAUDID 0.5 MG GIVEN FOR S/S OF DISCOMFORT. SON AT BED SIDE.
[2016-12-14 04:00] VITALS: BP 68/30
[2016-12-14 06:44] LABS: BASOPHILS 0.1 % (0-2); EOSINOPHILS 0 % (0-7); HEMOGLOBIN 9.9 g/dL (13.5-17.5); IMMATURE GRANULOCYTES 2.1 % (0-5); LYMPHOCYTES 7.1 % (15-50); MCH 28.2 pg (26.0-34.0); MCV 85.5 fL (80.0-100.0); MONOCYTES 9.5 % (2-11); NEUTROPHILS 81.2 % (40-80); RBC 3.51 10x6/uL (4.20-6.10); RDW 18.8 % (11.5-14.5); WBC 11.7 10x3/uL (4.8-10.8)
[2016-12-14 06:58] LABS: CARBON DIOXIDE 19.8 mmol/L (21.0-32.0); PHOSPHOROUS 7.4 mg/dL (2.5-4.9)
[2016-12-14 06:59] LABS: PLATELET COUNT 19 10x3/uL (130-400)
[2016-12-14 07:02] LABS: CREATININE - SERUM 4.8 mg/dL (0.6-1.3)
[2016-12-14 07:03] LABS: ANION GAP 21.2 mmol/L (8-16)
[2016-12-14 08:00] VITALS: BP 73/34
--- NOTE | 2016-12-14 08:24 | NUR ---
ADMINISTERED PEPCID ORDERED, PT NONRESPONSIVE, RESP EVEN AND LABORED 22, LT FA IV NS AT O. BED LOW AND WHEELS LOCKED, BEDSIDE RAILS X2, CALL LIGHT IN REACH, NAD NOTED, WILL CONTINUE TO MONITOR.
--- NOTE | 2016-12-14 11:58 | NUR ---
GRAIN CLEANER CALL OUT TO CHECK ON PT. WENT INTO PT ROOM AND PT WAS NOT BREATHING, FAMILY AT BEDSIDE STATED " I THINK HE JUST PASSED". LISTENED FOR HEART BEAT BUT DID NOT HEAR ANYHTING, ALSO DID NOT FEEL A PULSE, HAD CORRY RN CHECK ALSO AND NO HEART SOUND WAS HEARD OR PULSE FELT. WILL NOTIFY DR. LOPES. 1202- CALLED DR. LOPES AND SPOKE WITH ZANE CARPENTER'S NURSE, AZNE STATE THAT DR. CARPENTER WOULD BE BY TO PRONOUNCE PT.
[2016-12-14 12:00] VITALS: BP 56/24
--- NOTE | 2016-12-14 13:50 | NUR ---
CLEANED PT UP, D/C RT FA IV, TIP INTACT, ALSO REMOVED VELAZCO. CLEANED PT UP. HOME STAFF HERE TO WIRE BENDER PT.
== END 2016-12-14 14:23 | DRG 871 ==
LOC: D.ER 07:14 → D.M2 12:45
PROVIDERS: Family Medicine; Internal Medicine Nephrology; ADMIT Family Medicine
DX: A41.9 Sepsis, unspecified organism (principal); G93.40 Encephalopathy, unspecified; I21.4 Non-ST elevation (NSTEMI) myocardial infarction; N17.0 Acute kidney failure with tubular necrosis; I50.43 Acute on chronic combined systolic (congestive) and diastolic (congestive) heart failure; K72.00 Acute and subacute hepatic failure without coma; N39.0 Urinary tract infection, site not specified; I48.2 Chronic atrial fibrillation; I71.4 Abdominal aortic aneurysm, without rupture; D64.9 Anemia, unspecified; B95.62 Methicillin resistant Staphylococcus aureus infection as the cause of diseases classified elsewhere; I08.0 Rheumatic disorders of both mitral and aortic valves; Z66 Do not resuscitate